=== PATIENT | female | born 1980 | race African-American/Black ===

== ENCOUNTER → 2016-07-19 | Outpatient (CLI) | payer OTHER ==
[~2016-07-19] MED LIST: DOXYCYCLINE HY100 MG PO; ENDOCET 5-3251 EACH PO; Flintstones PO; IBUPROFEN800 MG PO; Motrin PO; NAPROSYN500 MG PO; TYLENOL WITH C1 EACH PO; Tylenol Extra Streng PO; Tylenol Regular Stre PO; VALIUM5 MG PO; ZOFRAN4 MG PO; [UNRECOGNIZED DRUG - OTHER] PO
[2016-07-19 17:10] LABS: APPEARANCE CLEAR/COLORLESS; RED CELL AREA COUNTED 18; RED CELL COUNT 1 /MM^3 (0-1); RED CELL DILUTION 1; WBC AREA COUNTED 18; WBC DILUTION 1; WHITE CELL COUNT 15 /MM^3 (0-5); WHITE CELL RAW COUNT 27
[2016-07-19 17:53] LABS: CSF EOSINOPHILS 0 % (0-25); MONO RAW COUNT 100; MONONUCLEAR WBC'S 100 % (50-90); POLYNUCLEAR WBC'S 0 % (0-3)
== END | disposition home or self-care (01) ==
LOC: RAD 14:48
PROVIDERS: Nurse Practitioner Family
PROC: 009U3ZZ Drainage of Spinal Canal, Percutaneous Approach (ICD-10-PCS; principal; 2016-07-19)
DX: R51 Headache (principal)
CPT/HCPCS: 62270; 77003; 82164 90; 82945; 83873 90; 83916 90; 84157; 86592 90; 86617 90; 86618 90; 87070; 87205; 89051